=== PATIENT | male | born 1965 | race Hispanic/Latino ===

== ENCOUNTER 2019-06-11 10:41 | Outpatient (CLI) | payer SELFPAY ==
--- NOTE | ~2019-06-11 | XR_ITS ---
EXAMINATION: XR ankle LT min 3V DATE: 06/11/2019 11:16 INDICATION: Closed bimalleolar fracture of left ankle. Follow-up. TECHNIQUE: 4 views of left ankle were obtained. COMPARISON: None. FINDINGS: There is a nondisplaced oblique fracture of distal fibula with medial aspect of the fractur e line 4 mm proximal to the level of the tibial plafond. There is an avulsion avulsion fracture of th e distal tip of medial malleolus with 1 mm distraction. There is a nondisplaced fracture of posterior malleolus. No visible callus. There is mild osteoarthritis of talonavicular joint. There are entheso phytes at the posterior and plantar aspects of calcaneal tuberosity. There is ankle soft tissue swell ing. IMPRESSION: 1. Trimalleolar ankle fracture. Reviewed, dictated and finalized at location A[facility]
== END 2019-06-11 10:42 | disposition home or self-care (01) ==
PROVIDERS: PCP Family Medicine; Visit Provider Family Medicine
DX: S82.845D Nondisplaced bimalleolar fracture of left lower leg, subsequent encounter for closed fracture with routine healing (principal); X58.XXXD Exposure to other specified factors, subsequent encounter
CPT/HCPCS: 73610